=== PATIENT | female | born 1955 | race Caucasian/White ===

== ENCOUNTER → 2016-09-08 | Outpatient (REF) | payer BC ==
[~2016-09-08] MED LIST: CYCL10TA PO; DICY10SO PO; IMOD2TAB16 PO; LORA2CON5 PO; LOVA20TA2 PO; MULT1TAB10 PO; RANI15TA PO; SUDA1TAB3 PO; TRAZ100T4 PO; TYLE650T35 PO; VAGI10TA VA; VITA400C97 PO; VITA500C19 PO; VITATAB PO
[2016-09-08 18:07] LABS: MEAN CORPUSCULAR HEMOGLOBIN 31.9 pg (27.0-33.0); MEAN CORPUSCULAR HGB CONC 33.2 g/dl (32.0-36.5); MEAN CORPUSCULAR VOLUME 96.1 fl (80.0-96.0); RED CELL DISTRIBUTION WIDTH 12.5 % (11.5-14.5); WHITE BLOOD COUNT 6.2 K/mm3 (4.0-10.0)
[2016-09-08 18:23] LABS: ALBUMIN 3.6 GM/DL (3.2-5.2); ALKALINE PHOSPHATASE 59 U/L (45-117); ALT/SGPT 38 U/L (12-78); ANION GAP 6 MEQ/L (8-16); AST/SGOT 33 U/L (15-37); BILIRUBIN,TOTAL 0.3 MG/DL (0.2-1.0); BLOOD UREA NITROGEN 10 MG/DL (7-18); CALCIUM LEVEL 8.7 MG/DL (8.8-10.2); CARBON DIOXIDE LEVEL 30 MEQ/L (21-32); CHLORIDE LEVEL 108 MEQ/L (98-107); CHOLESTEROL LEVEL 220 MG/DL (<200); CREATININE FOR GFR 0.96 MG/DL (0.55-1.02); GLOMERULAR FILTRATION RATE > 60.0 (>45); GLUCOSE, FASTING 83 MG/DL (80-110); POTASSIUM SERUM 4.5 MEQ/L (3.5-5.1); SODIUM LEVEL 144 MEQ/L (136-145); TOTAL PROTEIN 7.2 GM/DL (6.4-8.2); TRIGLYCERIDES LEVEL 107 MG/DL (<150)
== END ==
LOC: M SFHCCLAY 09:55
PROVIDERS: ATTEND Family Medicine
DX: E78.00 Pure hypercholesterolemia, unspecified (principal); G43.009 Migraine without aura, not intractable, without status migrainosus

== ENCOUNTER → 2017-04-20 | Outpatient (CLI) | payer BC ==
[~2017-04-20] MED LIST changes: +TRAZ-136 PO; -TRAZ100T4 PO
--- NOTE | 2017-04-20 14:23 | REP ---
MRI brain without contrast: History: Impairment of balance. . Comparison study: No comparison study. Technique: Axial and sagittal imaging planes are utilized for T1 and T2-weighted scans. Sequences include spin-echo, fast spin echo, FLAIR, and diffusion weighted sequences. MRI findings: No bony calvarial lesion is seen. Craniocervical junction and upper cervical cord are normal in appearance. There is no MR evidence of significant paranasal sinus disease. No intraorbital abnormality is seen. The lateral, third, and fourth ventricles are normal in size and position. Hutchinson-white differentiation pattern is intact above and below the tentorium. There is no evidence of intracranial hemorrhage. No mass, infarction, extra-axial fluid collection or midline shift is seen. No abnormal white matter lesion is seen. Impression: Negative noncontrast brain MRI study. Signed by Maxim Sweeney MD 04/20/2017 02:14 P
== END ==
LOC: M RAD 11:02
PROVIDERS: ATTEND Family Medicine
DX: R26.89 Other abnormalities of gait and mobility (principal)

== ENCOUNTER → 2017-09-25 | Outpatient (REF) | payer BC ==
[2017-09-26 12:37] LABS: ALBUMIN 3.8 GM/DL (3.2-5.2); ALKALINE PHOSPHATASE 65 U/L (45-117); ALT/SGPT 32 U/L (12-78); AST/SGOT 34 U/L (7-37); BILIRUBIN,DIRECT < 0.1 MG/DL (0.0-0.2); BILIRUBIN,TOTAL 0.3 MG/DL (0.2-1.0); TOTAL PROTEIN 7.6 GM/DL (6.4-8.2)
== END ==
LOC: M LABDRAWC 11:41
DX: R94.5 Abnormal results of liver function studies (principal)
CPT/HCPCS: 80076

== ENCOUNTER → 2017-10-30 | Outpatient (REF) | payer BC | LOC: M SFHCCLAY 11:13 | DX: R30.0 Dysuria (principal) | CPT/HCPCS: 87086 ==

== ENCOUNTER 2017-10-31 16:51 | Emergency (ER) | payer BC ==
[2017-10-31] MEDS: NS 1,000 ML IV ×4 (16:00→17:45)
[2017-10-31] MEDS: ONDANSETRON 4MG/2ML VIAL (J2405) IV ×2 (16:01)
[2017-10-31] MEDS: KETOROLAC 30 MG/ML VIAL (J1885) IV ×2 (16:01)
[2017-10-31] MEDS: PERCOCET 5MG/325MG TAB PO ×2 (16:04)
[2017-10-31] MEDS: diphenhydrAMINE INJ 50MG/ML VIAL (J1200) IV ×2 (16:07)
[2017-10-31 16:14] LABS: BASO % 0.1 % (0.0-1.0); EOS % 0.1 % (0.0-3.0); HEMATOCRIT 39.1 % (36.0-47.0); HEMOGLOBIN 13.5 g/dl (12.0-15.5); IMMATURE GRANULOCYTE % 0.5 % (0-3.0); LYMPH # 0.7 10^3/uL (1.5-4.5); LYMPH % 4.9 % (24.0-44.0); MEAN CORPUSCULAR HEMOGLOBIN 31.2 pg (27.0-33.0); MEAN CORPUSCULAR HGB CONC 34.5 g/dl (32.0-36.5); MEAN CORPUSCULAR VOLUME 90.3 fl (80.0-96.0); MONO # 0.3 10^3/uL (0.0-0.8); MONO % 2.1 % (0.0-5.0); NEUTROPHILS % 92.3 % (36.0-66.0); PLATELET COUNT, AUTOMATED 219 10^3/uL (150-450); RED BLOOD COUNT 4.33 10^6/uL (4.00-5.40); RED CELL DISTRIBUTION WIDTH 12.4 % (11.5-14.5); WHITE BLOOD COUNT 14.1 10^3/uL (4.0-10.0)
[2017-10-31 16:22] LABS: KETONE, URINE AUTO RFX NEGATIVE (NEGATIVE); NITRITE, URINE AUTO RFX NEGATIVE (NEGATIVE); RBC, URINE AUTO RFX 1 /HPF (0-3); SPECIFIC GRAVITY UR AUTO RFX 1.008 (1.002-1.035); SQUAM EPITHELIAL CELL UR AURFX 0 /HPF (0-6); WBC, URINE AUTO RFX 2 /HPF (0-3)
[2017-10-31 16:23] LABS: LEUKOCYTE ESTERASE UR AUTO RFX 1+ (NEGATIVE)
[2017-10-31 16:35] LABS: ALBUMIN/GLOBULIN RATIO 0.95 (1.00-1.93); ALKALINE PHOSPHATASE 53 U/L (45-117); ALT/SGPT 35 U/L (12-78); ANION GAP 8 MEQ/L (8-16); AST/SGOT 34 U/L (7-37); BILIRUBIN,TOTAL 0.5 MG/DL (0.2-1.0); BLOOD UREA NITROGEN 11 MG/DL (7-18); C REACTIVE PROTEIN QUANTITATIV 2.84 MG/DL (0.00-0.30); CALCIUM LEVEL 9.1 MG/DL (8.8-10.2); CARBON DIOXIDE LEVEL 28 MEQ/L (21-32); CHLORIDE LEVEL 106 MEQ/L (98-107); CREATININE FOR GFR 1.19 MG/DL (0.55-1.30); GLOMERULAR FILTRATION RATE 48.8 (>45); GLUCOSE, FASTING 80 MG/DL (70-100); LIPASE 112 U/L (73-393); POTASSIUM SERUM 3.6 MEQ/L (3.5-5.1); SODIUM LEVEL 142 MEQ/L (136-145); TOTAL PROTEIN 8.2 GM/DL (6.4-8.2)
[2017-10-31 16:45] LABS: ERYTHROCYTE SEDIMENTATION RATE 39 mm/hr (0-30)
[2017-10-31 16:52] LABS: LACTIC ACID SEPSIS PROTOCOL 2.3 MMOL/L (0.4-2.0)
[2017-10-31] MEDS ORDERED: ISOVUE-370 76% 100ML VIAL (Q9967) As Ordered ×2 (16:54)
[2017-10-31] MEDS: CIPROFLOXACIN 500 MG TAB PO ×2 (18:17)
[2017-10-31] MEDS: LevoFLOXacin 500 MG TABLET PO ×2 (18:49)
[2017-10-31 19:24] LABS: LACTIC ACID SEPSIS PROTOCOL 1.6 MMOL/L (0.4-2.0)
== END 2017-10-31 19:34 | disposition home or self-care (01) ==
LOC: M ED 16:51
DX: N10 Acute pyelonephritis (principal); A08.4 Viral intestinal infection, unspecified; N39.0 Urinary tract infection, site not specified; M19.90 Unspecified osteoarthritis, unspecified site; Z87.19 Personal history of other diseases of the digestive system; Z86.69 Personal history of other diseases of the nervous system and sense organs; Z98.890 Other specified postprocedural states; Z88.5 Allergy status to narcotic agent; Z88.8 Allergy status to other drugs, medicaments and biological substances; Z88.0 Allergy status to penicillin; Z88.2 Allergy status to sulfonamides; Z79.890 Hormone replacement therapy; Z79.899 Other long term (current) drug therapy
CPT/HCPCS: J1200

== ENCOUNTER 2017-11-15 15:32 | Inpatient (IN) | payer BC ==
[~2017-11-15 15:32] MED LIST changes: -CYCL10TA PO; -DICY10SO PO; -IMOD2TAB16 PO; -LORA2CON5 PO; -LOVA20TA2 PO; -MULT1TAB10 PO; +ONDANSETRON 4MG/2ML VIAL (J2405) IV; -RANI15TA PO; -SUDA1TAB3 PO; -TRAZ-136 PO; -TYLE650T35 PO; -VAGI10TA VA; -VITA400C97 PO; -VITA500C19 PO; -VITATAB PO
[2017-11-15 16:03] LABS: BASO % 0.2 % (0.0-1.0); EOS # 0.1 10^3/uL (0.0-0.50); EOS % 0.3 % (0.0-3.0); HEMATOCRIT 36.4 % (36.0-47.0); HEMOGLOBIN 12.7 g/dl (12.0-15.5); IMMATURE GRANULOCYTE % 0.7 % (0-3.0); LYMPH # 0.4 10^3/uL (1.5-4.5); MEAN CORPUSCULAR HEMOGLOBIN 31.4 pg (27.0-33.0); MEAN CORPUSCULAR HGB CONC 34.9 g/dl (32.0-36.5); MEAN CORPUSCULAR VOLUME 89.9 fl (80.0-96.0); MONO # 0.4 10^3/uL (0.0-0.8); MONO % 2.1 % (0.0-5.0); NEUTROPHILS # 18.1 10^3/uL (1.8-7.7); NEUTROPHILS % 94.7 % (36.0-66.0); PLATELET COUNT, AUTOMATED 202 10^3/uL (150-450); RED BLOOD COUNT 4.05 10^6/uL (4.00-5.40); RED CELL DISTRIBUTION WIDTH 12.5 % (11.5-14.5); WHITE BLOOD COUNT 19.1 10^3/uL (4.0-10.0)
[2017-11-15] MEDS ORDERED: ISOVUE-370 76% 100ML VIAL (Q9967) As Ordered (16:07)
[2017-11-15] MEDS: ACETAMINOPHEN TAB 650MG DOSE (2X325MG) PO ×2 (16:30→21:54)
[2017-11-15] MEDS: NS 1,000 ML IV ×3 (16:30→21:54)
[2017-11-15] MEDS: MEROPENEM INJ 1 GM in APPROPRIATE DILUENT 1 EA IV ×2 (16:30→23:11)
[2017-11-15 16:36] LABS: LACTIC ACID SEPSIS PROTOCOL 2.2 MMOL/L (0.4-2.0)
[2017-11-15 16:39] LABS: ALBUMIN 3.7 GM/DL (3.2-5.2); ALBUMIN/GLOBULIN RATIO 1.06 (1.00-1.93); ALKALINE PHOSPHATASE 55 U/L (45-117); ALT/SGPT 32 U/L (12-78); ANION GAP 7 MEQ/L (8-16); AST/SGOT 35 U/L (7-37); BILIRUBIN,TOTAL 0.4 MG/DL (0.2-1.0); BLOOD UREA NITROGEN 12 MG/DL (7-18); CALCIUM LEVEL 8.2 MG/DL (8.8-10.2); CARBON DIOXIDE LEVEL 26 MEQ/L (21-32); CHLORIDE LEVEL 108 MEQ/L (98-107); GLOMERULAR FILTRATION RATE 53.4 (>45); GLUCOSE, FASTING 112 MG/DL (70-100); MAGNESIUM LEVEL 2.1 MG/DL (1.8-2.4); SODIUM LEVEL 141 MEQ/L (136-145); THYROID STIMULATING HORMONE 0.846 uIU/ML (0.358-3.740); TOTAL PROTEIN 7.2 GM/DL (6.4-8.2)
[2017-11-15] MEDS: VANCOMYCIN HCL 1,000 MG, VIAL MATE ADAPTER 1 EACH in D5W/0.2% SODIUM CHLORIDE 250 ML IV (18:11)
[2017-11-15 18:38] LABS: APPEARANCE, URINE CLEAR (CLEAR); BACTERIA, URINE AUTO NEGATIVE (NEGATIVE); BILIRUBIN, URINE AUTO NEGATIVE (NEGATIVE); BLOOD, URINE BLOOD NEGATIVE (NEGATIVE); COLOR, URINE YELLOW (YELLOW); GLUCOSE, URINE (UA) AUTO NEGATIVE (NEGATIVE); KETONE, URINE AUTO NEGATIVE (NEGATIVE); LEUKOCYTE ESTERASE, URINE AUTO 1+ (NEGATIVE); NITRITE, URINE AUTO NEGATIVE (NEGATIVE); PROTEIN, URINE AUTO NEGATIVE (NEGATIVE); RBC, URINE AUTO 1 /HPF (0-3); SPECIFIC GRAVITY URINE AUTO 1.008 (1.002-1.035); SQUAMOUS EPITHELIAL CELL UR AU 0 /HPF (0-6); UROBILINOGEN, URINE AUTO 0.2 mg/dL (0.0-2.0); WBC, URINE AUTO 5 /HPF (0-3)
[2017-11-15 19:57] LABS: BEDSIDE GLUCOSE 199 MG/DL (80-115)
[2017-11-15 20:26] LABS: LACTIC ACID SEPSIS PROTOCOL 2.7 MMOL/L (0.4-2.0)
[2017-11-15] MEDS: SODIUM CHLORIDE 0.9% 1000 ML IV (20:52)
[2017-11-15] MEDS: traZODone 100 MG TAB PO (21:54)
[2017-11-15 22:59] LABS: REASON FOR REVIEW WBC/LEUKEMIA/BLAST; SLIDE REVIEW Report; SOURCE PERIPHERAL SMEAR
[2017-11-15 23:05] LABS: C REACTIVE PROTEIN QUANTITATIV 3.68 MG/DL (0.00-0.30); RHEUMATOID FACTOR QUANT < 10.0 IU/ML (<15.0)
[2017-11-15 23:17] LABS: DIFF SLIDE NUMBER 24
[2017-11-16 00:08] LABS: BEDSIDE GLUCOSE 105 MG/DL (80-115)
[2017-11-16] MEDS: VANCOMYCIN HCL 1,000 MG, VIAL MATE ADAPTER 1 EACH in D5W/0.2% SODIUM CHLORIDE 250 ML IV ×2 (05:09→22:39)
[2017-11-16 05:52] LABS: BEDSIDE GLUCOSE 107 MG/DL (80-115)
[2017-11-16 07:12] LABS: HEMATOCRIT 30.1 % (36.0-47.0); MEAN CORPUSCULAR HEMOGLOBIN 31.1 pg (27.0-33.0); MEAN CORPUSCULAR HGB CONC 34.6 g/dl (32.0-36.5); MEAN CORPUSCULAR VOLUME 90.1 fl (80.0-96.0); PLATELET COUNT, AUTOMATED 182 10^3/uL (150-450); RED BLOOD COUNT 3.34 10^6/uL (4.00-5.40); RED CELL DISTRIBUTION WIDTH 12.9 % (11.5-14.5); WHITE BLOOD COUNT 12.3 10^3/uL (4.0-10.0)
[2017-11-16 07:16] LABS: HEMOGLOBIN 10.4 g/dl (12.0-15.5)
[2017-11-16 07:26] LABS: ANION GAP 6 MEQ/L (8-16); BLOOD UREA NITROGEN 8 MG/DL (7-18); CALCIUM LEVEL 7.4 MG/DL (8.8-10.2); CARBON DIOXIDE LEVEL 24 MEQ/L (21-32); CHLORIDE LEVEL 115 MEQ/L (98-107); GLOMERULAR FILTRATION RATE > 60.0 (>45); GLUCOSE, FASTING 118 MG/DL (70-100); POTASSIUM SERUM 3.5 MEQ/L (3.5-5.1); SODIUM LEVEL 145 MEQ/L (136-145)
[2017-11-16] MEDS ORDERED: PANTOPRAZOLE 40MG TAB (PROTONIX) PO (09:00)
[2017-11-16] MEDS: ENOXAPARIN 40 MG/0.4 ML SYRINGE (J1650) SC (09:05)
[2017-11-16] MEDS: MEROPENEM INJ 1 GM in APPROPRIATE DILUENT 1 EA IV ×2 (09:05→17:26)
[2017-11-16] MEDS: NS 1,000 ML IV ×2 (11:13→20:55)
[2017-11-16] MEDS: IBUPROFEN 400 MG TAB PO ×2 (13:40→21:55)
[2017-11-16] MEDS: FAMOTIDINE 20 MG TAB PO ×2 (13:47→21:54)
[2017-11-16] MEDS ORDERED: ISOVUE-370 76% 100ML VIAL (Q9967) As Ordered (17:52)
[2017-11-16 19:34] LABS: CHLAMYDIA DNA AMPLIFICATION NEGATIVE (NEGATIVE); GC DNA AMPLIFICATION NEGATIVE (NEGATIVE)
[2017-11-16 21:42] LABS: ERYTHROCYTE SEDIMENTATION RATE 44 mm/hr (0-30)
[2017-11-16] MEDS: traZODone 100 MG TAB PO (21:55)
[2017-11-17] MEDS: MEROPENEM INJ 1 GM in APPROPRIATE DILUENT 1 EA IV ×3 (00:32→15:36)
[2017-11-17 02:55] LABS: APPEARANCE, URINE CLEAR (CLEAR); BACTERIA, URINE AUTO NEGATIVE (NEGATIVE); BILIRUBIN, URINE AUTO NEGATIVE (NEGATIVE); BLOOD, URINE BLOOD NEGATIVE (NEGATIVE); COLOR, URINE STRAW (YELLOW); GLUCOSE, URINE (UA) AUTO NEGATIVE (NEGATIVE); KETONE, URINE AUTO NEGATIVE (NEGATIVE); LEUKOCYTE ESTERASE, URINE AUTO TRACE (NEGATIVE); MUCUS, URINE SMALL (NEGATIVE); NITRITE, URINE AUTO NEGATIVE (NEGATIVE); PROTEIN, URINE AUTO NEGATIVE (NEGATIVE); RBC, URINE AUTO 2 /HPF (0-3); SQUAMOUS EPITHELIAL CELL UR AU 0 /HPF (0-6); UROBILINOGEN, URINE AUTO 0.2 mg/dL (0.0-2.0); WBC, URINE AUTO 6 /HPF (0-3)
[2017-11-17 07:28] LABS: ANION GAP 6 MEQ/L (8-16); BLOOD UREA NITROGEN 7 MG/DL (7-18); CALCIUM LEVEL 7.8 MG/DL (8.8-10.2); CARBON DIOXIDE LEVEL 26 MEQ/L (21-32); CHLORIDE LEVEL 116 MEQ/L (98-107); CREATININE FOR GFR 0.74 MG/DL (0.55-1.30); GLOMERULAR FILTRATION RATE > 60.0 (>45); GLUCOSE, FASTING 87 MG/DL (70-100); POTASSIUM SERUM 4.1 MEQ/L (3.5-5.1); SODIUM LEVEL 148 MEQ/L (136-145)
[2017-11-17] MEDS: ENOXAPARIN 40 MG/0.4 ML SYRINGE (J1650) SC (08:31)
[2017-11-17] MEDS: NS 1,000 ML IV ×2 (09:44→21:02)
[2017-11-17 11:05] LABS: HIV 1&2 SCREEN CENTAUR NEGATIVE (NEGATIVE)
[2017-11-17] MEDS: FAMOTIDINE 20 MG TAB PO (13:52)
[2017-11-17] MEDS: IBUPROFEN 400 MG TAB PO (13:52)
[2017-11-17] MEDS: ACETAMINOPHEN TAB 650MG DOSE (2X325MG) PO (15:36)
[2017-11-17 16:20] LABS: ANTINUCLEAR ANTIBODIES DIRECT Negative (Negative)
[2017-11-17] MEDS: VANCOMYCIN HCL 1,000 MG, VIAL MATE ADAPTER 1 EACH in D5W/0.2% SODIUM CHLORIDE 250 ML IV (17:37)
[2017-11-17 18:36] LABS: VANCOMYCIN LEVEL TROUGH 11.3 UG/ML (10.0-20.0)
[2017-11-17 19:11] LABS: HEMATOCRIT 31.1 % (36.0-47.0); HEMOGLOBIN 10.6 g/dl (12.0-15.5); MEAN CORPUSCULAR HEMOGLOBIN 31.4 pg (27.0-33.0); MEAN CORPUSCULAR HGB CONC 34.1 g/dl (32.0-36.5); PLATELET COUNT, AUTOMATED 168 10^3/uL (150-450); RED BLOOD COUNT 3.38 10^6/uL (4.00-5.40); WHITE BLOOD COUNT 6.3 10^3/uL (4.0-10.0)
[2017-11-17 19:36] LABS: ALBUMIN 2.8 GM/DL (3.2-5.2); ALBUMIN/GLOBULIN RATIO 0.88 (1.00-1.93); ALKALINE PHOSPHATASE 52 U/L (45-117); ALT/SGPT 27 U/L (12-78); ANION GAP 7 MEQ/L (8-16); AST/SGOT 22 U/L (7-37); BILIRUBIN,TOTAL 0.2 MG/DL (0.2-1.0); BLOOD UREA NITROGEN 9 MG/DL (7-18); CARBON DIOXIDE LEVEL 26 MEQ/L (21-32); CHLORIDE LEVEL 112 MEQ/L (98-107); CREATININE FOR GFR 0.78 MG/DL (0.55-1.30); GLOMERULAR FILTRATION RATE > 60.0 (>45); GLUCOSE, FASTING 108 MG/DL (70-100); POTASSIUM SERUM 4.2 MEQ/L (3.5-5.1); SODIUM LEVEL 145 MEQ/L (136-145)
[2017-11-17] MEDS: traZODone 100 MG TAB PO (21:02)
[2017-11-18 00:14] LABS: Lyme Disease IgG/IgM Antibodie <0.91 ISR (0.00-0.90); Lyme Disease IgM Ab Quantitati <0.80 index (0.00-0.79)
[2017-11-18] MEDS: MEROPENEM INJ 1 GM in APPROPRIATE DILUENT 1 EA IV ×2 (00:48→08:48)
[2017-11-18] MEDS: VANCOMYCIN HCL 1,000 MG, VIAL MATE ADAPTER 1 EACH in D5W/0.2% SODIUM CHLORIDE 250 ML IV (05:30)
[2017-11-18] MEDS: IBUPROFEN 400 MG TAB PO ×2 (05:49→06:20)
[2017-11-18 06:33] LABS: HEMATOCRIT 33.2 % (36.0-47.0); HEMOGLOBIN 11.3 g/dl (12.0-15.5); MEAN CORPUSCULAR HEMOGLOBIN 31.3 pg (27.0-33.0); PLATELET COUNT, AUTOMATED 206 10^3/uL (150-450); RED BLOOD COUNT 3.61 10^6/uL (4.00-5.40); WHITE BLOOD COUNT 7.1 10^3/uL (4.0-10.0)
[2017-11-18 06:47] LABS: ANION GAP 5 MEQ/L (8-16); BLOOD UREA NITROGEN 7 MG/DL (7-18); CALCIUM LEVEL 8.2 MG/DL (8.8-10.2); CARBON DIOXIDE LEVEL 28 MEQ/L (21-32); CHLORIDE LEVEL 111 MEQ/L (98-107); CREATININE FOR GFR 0.77 MG/DL (0.55-1.30); GLOMERULAR FILTRATION RATE > 60.0 (>45); GLUCOSE, FASTING 88 MG/DL (70-100); POTASSIUM SERUM 3.4 MEQ/L (3.5-5.1); SODIUM LEVEL 144 MEQ/L (136-145)
[2017-11-18] MEDS: NS 1,000 ML IV (08:48)
[2017-11-18] MEDS: ACETAMINOPHEN TAB 650MG DOSE (2X325MG) PO (08:49)
[2017-11-18] MEDS: ENOXAPARIN 40 MG/0.4 ML SYRINGE (J1650) SC (08:50)
[2017-11-18] MEDS: POTASSIUM CHLORIDE 10 MEQ SR TABLET PO (11:30)
[2017-11-19 09:05] LABS: QUANTIFERON GOLD TB Negative (Negative); TB Test (QFT) Antigen 0.07 IU/mL (.); TB Test (QFT) Antigen Minus Ni 0.02 IU/mL (.); TB Test (QFT) Mitogen 7.23 IU/mL (.); TB Test (QFT) Nil 0.05 IU/mL (.)
== END 2017-11-18 11:45 | disposition home or self-care (01) | DRG 722 ==
LOC: M MSPAV 15:32
DX: R50.9 Fever, unspecified (principal); K21.9 Gastro-esophageal reflux disease without esophagitis; M79.7 Fibromyalgia; Z86.14 Personal history of Methicillin resistant Staphylococcus aureus infection; Z88.0 Allergy status to penicillin; Z88.2 Allergy status to sulfonamides; Z88.1 Allergy status to other antibiotic agents; Z88.5 Allergy status to narcotic agent; Z79.899 Other long term (current) drug therapy; Z87.19 Personal history of other diseases of the digestive system

== ENCOUNTER → 2017-11-15 | Outpatient (REF) | payer BC | LOC: M SFHCCLAY 14:50 | DX: R50.9 Fever, unspecified (principal) | CPT/HCPCS: 87086 ==

== ENCOUNTER → 2017-11-27 | Outpatient (REF) | payer BC | LOC: M SFHCCLAY 13:23 | DX: R50.9 Fever, unspecified (principal) | CPT/HCPCS: 86063 ==

== ENCOUNTER → 2017-12-07 | Outpatient (CLI) | payer BC | LOC: M WHC 10:45 | DX: Z12.31 Encounter for screening mammogram for malignant neoplasm of breast (principal); R92.8 Other abnormal and inconclusive findings on diagnostic imaging of breast | CPT/HCPCS: 77067 ==

== ENCOUNTER → 2017-12-07 | Outpatient (REF) | payer BC ==
[2017-12-09 14:10] LABS: HPV HYBRID CAPTURE II Negative (Negative)
== END ==
LOC: M SFHCWAGY 11:36
DX: Z12.4 Encounter for screening for malignant neoplasm of cervix (principal)
CPT/HCPCS: G0123

== ENCOUNTER → 2017-12-13 | Outpatient (CLI) | payer BC | LOC: M RAD 11:51 | DX: R92.8 Other abnormal and inconclusive findings on diagnostic imaging of breast (principal) | CPT/HCPCS: 77065 ==

== ENCOUNTER → 2018-03-15 | Outpatient (REF) | payer BC | LOC: M SFHCCLAY 12:33 | DX: R50.9 Fever, unspecified (principal) ==

== ENCOUNTER → 2018-08-16 | Outpatient (CLI) | payer BC ==
[~2018-08-16] MED LIST changes: +CIPR-249 PO; +CYCL10TA PO; +DICY10SO PO; +IMOD2TAB16 PO; +LEVA1TAB2 PO; +LORA2CON5 PO; +LOVA20TA2 PO; +MULT1TAB10 PO; +NITR100C2; -ONDANSETRON 4MG/2ML VIAL (J2405) IV; +POLY33503; +PROM25TA12 PO; +RANI15TA PO; +SUDA1TAB3 PO; +TOPI25TA10; +TRAZ-163 PO; +TYLE650T35 PO; +VAGI10TA VA; +VITA400C97 PO; +VITA500C19 PO; +VITATAB PO; +ZOFR4TAB14 PO
--- NOTE | 2018-08-17 01:32 | REP ---
Clinical: Trauma. Right foot sprain. Technique: AP, lateral, bilateral oblique views right foot . Findings: The osseous structures and joint spaces are intact and normal. Moderate heal spur noted. There is no evidence for acute fracture or dislocation. Surrounding soft tissues are unremarkable. No subcutaneous emphysema or radiodense foreign body. Impression: Generalized age-related changes. No acute fracture or dislocation.
--- NOTE | 2018-08-17 01:32 | REP ---
Clinical: Right ankle sprain . Technique: AP, lateral, bilateral oblique views. Findings: No acute fracture or dislocation. Skeletal structures and joint spaces are intact and normal. Lateral view demonstrates moderate calcaneal heal spur. Ankle mortise appears stable. No subcutaneous emphysema or radiodense foreign body. Impression: Age-related changes. No acute fracture or dislocation. Moderate heal spur.
== END ==
LOC: M CLY 14:31
PROVIDERS: ATTEND Family Medicine
DX: S93.491A Sprain of other ligament of right ankle, initial encounter (principal); M77.31 Calcaneal spur, right foot; X58.XXXA Exposure to other specified factors, initial encounter; Y92.9 Unspecified place or not applicable

== ENCOUNTER 2018-10-26 09:06 | Day surgery (SDC) | payer BC ==
[~2018-10-26] VITALS: Ht 162.6 cm; Wt 59.4 kg
[2018-10-26] MEDS ORDERED: NS 1,000 ML IV ONE (10:30)
[2018-10-26] MEDS ORDERED: PROPOFOL 200 MG/20 ML VIAL As Ordered ONE (11:21)
--- NOTE | 2018-10-26 11:28 | ROOR ---
Patient Name: Maxine Bell Procedure Date: 10/26/2018 10:58 AM Date of : 1955 Age: 63 Room: [facility] Gender: Female Note Status: Finalized Procedure: Colonoscopy Indications: High risk colon cancer surveillance: Ulcerative pancolitis, Incidental - Microscopic colitis, Incidental - Change in bowel habits Providers: Lucas OWEN MD Referring MD: Parker Morris MD Requesting Provider: Medicines: Monitored Anesthesia Care Complications: No immediate complications. Procedure: Pre-Anesthesia Assessment: - The heart rate, respiratory rate, oxygen saturations, blood pressure, adequacy of pulmonary ventilation, and response to care were monitored throughout the procedure. The Colonoscope was introduced through the anus and advanced to 10 cm into the ileum. The colonoscopy was performed without difficulty. The patient tolerated the procedure well. The quality of the bowel preparation was good. Findings: The perianal and digital rectal examinations were normal. The terminal ileum appeared normal. A few medium-mouthed diverticula were found in the sigmoid colon. The exam was otherwise normal throughout the examined colon. Several biopsies were obtained with cold forceps for ulcerative colitis surveillance and evaluation of collagenous colitis in the left colon, as well as several biopsies in the transverse colon, several biopsies in the descending colon and several biopsies in the sigmoid colon. Several biopsies were obtained in the rectum with cold forceps for histology. Impression: - The examined portion of the ileum was normal. - Mild diverticulosis in the sigmoid colon. - The colon was otherwise normal. - Biopsies performed in the left colon, in the transverse colon, in the descending colon and in the sigmoid colon and rectum. Recommendation: - Telephone endoscopist for pathology results in 2 weeks. Lucas Owen MD Lucas OWEN MD 10/26/2018 11:27:47 AM Electronically signed by Lucas OWEN MD Number of Addenda: 0 Note Initiated On: 10/26/2018 10:58 AM Estimated Blood Loss: Estimated blood loss: none.
[2018-10-26 12:05] VITALS: BP 124/75
== END 2018-10-26 12:05 | disposition home or self-care (01) ==
LOC: M OPP 09:06
PROVIDERS: ATTEND Internal Medicine Gastroenterology
DX: K51.00 Ulcerative (chronic) pancolitis without complications (principal); K57.30 Diverticulosis of large intestine without perforation or abscess without bleeding; K52.831 Collagenous colitis; Z79.899 Other long term (current) drug therapy; Z88.0 Allergy status to penicillin; Z88.2 Allergy status to sulfonamides; Z88.5 Allergy status to narcotic agent; Z88.8 Allergy status to other drugs, medicaments and biological substances

== ENCOUNTER → 2019-03-25 | Outpatient (REF) | payer BC ==
[2019-03-25 16:56] LABS: HEMATOCRIT 41.2 % (36.0-47.0); MEAN CORPUSCULAR HEMOGLOBIN 31.6 pg (27.0-33.0); PLATELET COUNT, AUTOMATED 246 10^3/uL (150-450); RED BLOOD COUNT 4.43 10^6/uL (4.00-5.40); WHITE BLOOD COUNT 6.9 10^3/uL (4.0-10.0)
[2019-03-25 17:39] LABS: ALBUMIN 3.9 GM/DL (3.2-5.2); BILIRUBIN,TOTAL 0.3 MG/DL (0.2-1.0); CALCIUM LEVEL 9.5 MG/DL (8.8-10.2); CHOLESTEROL RISK RATIO 4.236 (<5); CREATININE FOR GFR 1.13 MG/DL (0.55-1.30); GLOMERULAR FILTRATION RATE 51.6 (>45); POTASSIUM SERUM 4.9 MEQ/L (3.5-5.1); TOTAL 25(OH) VITAMIN D 41.8 NG/ML (30.0-100.0); TOTAL PROTEIN 7.6 GM/DL (6.4-8.2)
== END ==
LOC: M SFHCCLAY 09:53
PROVIDERS: ATTEND Nurse Practitioner Family
DX: K76.0 Fatty (change of) liver, not elsewhere classified (principal); E78.5 Hyperlipidemia, unspecified; Z13.21 Encounter for screening for nutritional disorder

== ENCOUNTER → 2019-09-03 | Outpatient (REF) | payer MEDICARE ==
[~2019-09-03] MED LIST changes: +CYCL-707 PO; -CYCL10TA PO; -TRAZ-163 PO; +TRAZ-257 PO
== END ==
LOC: M SFHCCLAY 16:57
PROVIDERS: ATTEND Family Medicine
DX: N30.00 Acute cystitis without hematuria (principal)

== ENCOUNTER → 2019-10-08 | Outpatient (REF) | payer MEDICARE ==
[2019-10-08 17:45] LABS: ALBUMIN 3.8 GM/DL (3.2-5.2); BILIRUBIN,TOTAL 0.3 MG/DL (0.2-1.0); CHOLESTEROL RISK RATIO 4.584 (<5); CREATININE FOR GFR 1.11 MG/DL (0.55-1.30); GLOMERULAR FILTRATION RATE 52.5 (>45); POTASSIUM SERUM 5.2 MEQ/L (3.5-5.1); THYROID STIMULATING HORMONE 2.67 uIU/ML (0.358-3.740); TOTAL PROTEIN 7.2 GM/DL (6.4-8.2)
== END ==
LOC: M SFHCCLAY 09:26
PROVIDERS: ATTEND Family Medicine
DX: E78.2 Mixed hyperlipidemia (principal)

== ENCOUNTER → 2019-10-14 | Outpatient (REF) | payer MEDICARE | LOC: M SFHCCLAY 11:51 | PROVIDERS: ATTEND Family Medicine | DX: R30.0 Dysuria (principal) ==

== ENCOUNTER → 2019-11-12 | Outpatient (CLI) | payer MEDICARE ==
[~2019-11-12] MED LIST changes: +ACET650T61 PO; -TYLE650T35 PO
--- NOTE | 2019-11-12 13:48 | REP ---
REASON FOR EXAM: Pelvic pain. Transvesical and transvaginal imaging was obtained. The uterus measures 4.2 x 2.8 x 3.7 cm. The parenchymal echo pattern is within normal limits. The endometrial complex measures 2 mm in thickness. Neither ovary could be visualized transvesically or transvaginally. Urinary bladder measures 8 x 5 x 9 cm. There is no free fluid in the pelvis. IMPRESSION: Limited exam, as described above, showing no abnormality. Since neither ovary could be visualized transvesically or transvaginally, consider followup with pelvic MRI.
== END ==
LOC: M WHC 08:51
PROVIDERS: ATTEND Nurse Practitioner Family
DX: R10.2 Pelvic and perineal pain (principal)

== ENCOUNTER → 2019-11-13 | Outpatient (CLI) | payer BC ==
--- NOTE | 2019-11-13 14:42 | REPMRS ---
Patient History The patient states she had a clinical breast exam in November 2019. No known family history of cancer. Benign stereotactic core biopsy of the right breast. Benign excisional biopsy of the left breast. Taking unspecified hormones for 3 years. 3D TOMOSYNTHESIS WAS PERFORMED. The Estelita Goss lifetime risk for breast cancer is 5.8%. VOLPARA DENSITY B. Digital Woman Screen Mammo: November 13, 2019 - Exam #: [id number] Bilateral CC and MLO view(s) were taken. Technologist: Rama King, Technologist Prior study comparison: December 13, 2017, right breast digital mammo diagnostic unilateral, performed at [facility]. December 07, 2017, bilateral digital woman screen mammo performed at [facility]. FINDINGS: The breast tissue is heterogeneously dense. This may lower the sensitivity of mammography. There has been no change in the appearance of the mammogram from the prior studies. There is a moderate amount of residual fibroglandular tissue which is fairly symmetric. There is no interval development of dominant mass, areas of architectural distortion, or clustered microcalcification typical of malignancy. Assessment: BI-RADS/ACR category 1 mammogram. Negative Mammogram. Recommendation Routine screening mammogram in 1 year (for women over age 40). This mammogram was interpreted with the aid of an FDA-approved computer-aided dectection system. Electronically Signed By: Will Hutchinson MD 11/13/19 3620
== END ==
LOC: M WHC 12:41
PROVIDERS: ATTEND Nurse Practitioner Family
DX: Z12.31 Encounter for screening mammogram for malignant neoplasm of breast (principal); Z86.018 Personal history of other benign neoplasm

== ENCOUNTER → 2019-11-13 | Outpatient (REF) | payer MEDICARE | LOC: M SFHCWAGY 15:07 | PROVIDERS: ATTEND Nurse Practitioner Family | DX: Z12.4 Encounter for screening for malignant neoplasm of cervix (principal) ==

== ENCOUNTER → 2020-03-27 | Outpatient (REF) | payer MEDICARE ==
[2020-03-27 16:55] LABS: ALBUMIN 3.9 GM/DL (3.2-5.2); BILIRUBIN,TOTAL 0.4 MG/DL (0.2-1.0); CALCIUM LEVEL 9.3 MG/DL (8.8-10.2); GLOMERULAR FILTRATION RATE 59.2 (>45); POTASSIUM SERUM 4.9 MEQ/L (3.5-5.1); THYROID STIMULATING HORMONE 2.34 uIU/ML (0.358-3.740); TOTAL PROTEIN 7.7 GM/DL (6.4-8.2)
[2020-03-31 00:07] LABS: ANA (HEP2) Negative (.); CYCLIC CITRULLINATED PEPTIDE 6 units (0-19); Lyme Disease IgG/IgM Antibodie <0.91 ISR (0.00-0.90); Lyme Disease IgM Ab Quantitati <0.80 index (0.00-0.79)
== END ==
LOC: M SFHCCLAY 10:30
PROVIDERS: ATTEND Family Medicine
DX: L27.1 Localized skin eruption due to drugs and medicaments taken internally (principal); K21.9 Gastro-esophageal reflux disease without esophagitis; L65.9 Nonscarring hair loss, unspecified

== ENCOUNTER → 2020-04-27 | Outpatient (REF) | payer MEDICARE ==
[2020-04-27 17:13] LABS: ALBUMIN 4.1 GM/DL (3.2-5.2); BILIRUBIN,TOTAL 0.2 MG/DL (0.2-1.0); CALCIUM LEVEL 9.6 MG/DL (8.8-10.2); CREATININE FOR GFR 1.04 MG/DL (0.55-1.30); GLOMERULAR FILTRATION RATE 56.6 (>45); POTASSIUM SERUM 4.7 MEQ/L (3.5-5.1); TOTAL PROTEIN 7.5 GM/DL (6.4-8.2)
== END ==
LOC: M SFHCCLAY 13:50
PROVIDERS: ATTEND Family Medicine
DX: K21.9 Gastro-esophageal reflux disease without esophagitis (principal); Z79.899 Other long term (current) drug therapy

== ENCOUNTER → 2020-08-17 | Outpatient (REF) | payer MEDICARE ==
[2020-08-17 16:39] LABS: BASO # 0.1 10^3/uL (0.0-0.2); BASO % 0.9 % (0.0-1.0); EOS # 0.2 10^3/uL (0.0-0.5); EOS % 2.7 % (0.0-3.0); HEMATOCRIT 40.1 % (36.0-47.0); HEMOGLOBIN 13.5 g/dl (12.0-15.5); LYMPH # 2.7 10^3/uL (1.5-5.0); LYMPH % 36.4 % (24.0-44.0); MEAN CORPUSCULAR HEMOGLOBIN 31.4 pg (27.0-33.0); MEAN CORPUSCULAR HGB CONC 33.7 g/dl (32.0-36.5); MEAN CORPUSCULAR VOLUME 93.3 fl (80.0-96.0); MONO # 0.5 10^3/uL (0.0-0.8); MONO % 6.9 % (2.0-8.0); NEUTROPHILS # 3.9 10^3/uL (1.5-8.5); NEUTROPHILS % 52.8 % (36.0-66.0); PLATELET COUNT, AUTOMATED 253 10^3/uL (150-450); WHITE BLOOD COUNT 7.4 10^3/uL (4.0-10.0)
[2020-08-17 17:21] LABS: ALBUMIN 4.2 GM/DL (3.2-5.2); ALT/SGPT 34 U/L (12-78); AMYLASE 132 U/L (25-115); BILIRUBIN,TOTAL 0.4 MG/DL (0.2-1.0); BLOOD UREA NITROGEN 10 MG/DL (7-18); CALCIUM LEVEL 9.7 MG/DL (8.8-10.2); CARBON DIOXIDE LEVEL 30 MEQ/L (21-32); CHLORIDE LEVEL 105 MEQ/L (98-107); CREATININE FOR GFR 0.95 MG/DL (0.55-1.30); GLOMERULAR FILTRATION RATE > 60.0 (>45); GLUCOSE, FASTING 94 MG/DL (70-100); LIPASE 195 U/L (73-393); POTASSIUM SERUM 4.3 MEQ/L (3.5-5.1); SODIUM LEVEL 139 MEQ/L (136-145); TOTAL PROTEIN 7.5 GM/DL (6.4-8.2)
== END ==
LOC: M LABDRAWC 15:43
PROVIDERS: ATTEND Physician Assistant Medical
DX: R10.10 Upper abdominal pain, unspecified (principal)

== ENCOUNTER → 2020-08-25 | Outpatient (CLI) | payer MEDICARE ==
--- NOTE | 2020-08-25 10:31 | REP ---
INDICATION: R07.89, ATYPICAL CHEST PAIN COMPARISON: 11/15/2017 TECHNIQUE: PA and lateral. FINDINGS: The mediastinum and cardiac silhouette are normal. The lung nance are clear and without acute consolidation, effusion, or pneumothorax. The skeletal structures are intact and normal. IMPRESSION: No acute cardiopulmonary process. <Electronically signed by Doe Romero > 08/25/20 1028
== END ==
LOC: M CLY 10:05
PROVIDERS: ATTEND Family Medicine
DX: R07.89 Other chest pain (principal)

== ENCOUNTER → 2020-08-26 | Outpatient (CLI) | payer MEDICARE ==
--- NOTE | 2020-08-26 08:17 | REP ---
INDICATION: UPPER ABD PAIN, HEARTBURN COMPARISON: None. TECHNIQUE: Real time tomlin scale ultrasound examination using curved array transducer. FINDINGS: Liver is hyperechoic consistent with fatty infiltration. No focal hepatic lesion identified. No hepatomegaly. Pancreas is limited in evaluation due to interposed bowel gas. The gallbladder is surgically absent. No biliary ductal dilatation is appreciated and the common bile duct measures 3.4 mm diameter. Right kidney is normal in reniform shape without hydronephrosis and measures 9.6 x 3.9 x 3.7 cm. No ascites in the visualized right upper quadrant. IMPRESSION: Hepatosteatosis. <Electronically signed by Doe Romero > 08/26/20 0820
== END ==
LOC: M RAD 07:28
PROVIDERS: ATTEND Physician Assistant Medical
DX: K76.0 Fatty (change of) liver, not elsewhere classified (principal); R10.10 Upper abdominal pain, unspecified; R12 Heartburn

== ENCOUNTER → 2020-09-30 | Outpatient (REF) | payer MEDICARE | LOC: M LAB REF 15:54 | PROVIDERS: ATTEND Physician Assistant Medical | DX: R19.7 Diarrhea, unspecified (principal) ==

== ENCOUNTER → 2020-10-04 | Outpatient (CLI) | payer MEDICARE ==
[~2020-10-04] MED LIST changes: +APAP325T4 PO; +CVS1CAP2 PO; +FAMO20TA PO; +IBUP200C29 PO; +VITMTA PO
== END ==
LOC: M LABSMTC 09:55
PROVIDERS: ATTEND Anesthesiology
DX: Z01.818 Encounter for other preprocedural examination (principal); Z11.52 Encounter for screening for COVID-19

== ENCOUNTER 2020-10-09 11:07 | Day surgery (SDC) | payer MEDICARE ==
[~2020-10-09] VITALS: Ht 160 cm; Wt 61.7 kg
[~2020-10-09 11:07] MED LIST changes: +LIDOCAINE 2% 100MG/5ML SDV (FOR ANES.) As Ordered ONE; +NS 1,000 ML IV ONE; +propofoL 200 MG/20 ML VIAL As Ordered ONE
[2020-10-09] MEDS ORDERED: fentaNYL 100 MCG/2 ML INJECTION (J3010) As Ordered ONE (11:18)
--- NOTE | 2020-10-09 13:58 | ROOR ---
Patient Name: Maxine Bell Procedure Date: 10/09/2020 1:35 PM Date of : 1955 Age: 65 Room: [facility] Gender: Female Note Status: Finalized Procedure: Upper GI endoscopy Indications: Epigastric abdominal pain, Heartburn Providers: Lucas Owen MD Referring MD: Parker Morris MD Requesting Provider: Medicines: Monitored Anesthesia Care Complications: No immediate complications. Procedure: Pre-Anesthesia Assessment: - The heart rate, respiratory rate, oxygen saturations, blood pressure, adequacy of pulmonary ventilation, and response to care were monitored throughout the procedure. The Endoscope was introduced through the mouth, and advanced to the second part of duodenum. The upper GI endoscopy was accomplished without difficulty. The patient tolerated the procedure well. Findings: The esophagus was normal. The stomach was normal. The examined duodenum was normal. Impression: - Normal esophagus. - Normal stomach. - Normal examined duodenum. - No specimens collected. Recommendation: - Observe patient's clinical course. - Continue present medications. Procedure Code(s): --- Professional --- 77426, Esophagogastroduodenoscopy, flexible, transoral; diagnostic, including collection of specimen(s) by brushing or washing, when performed (separate procedure) Diagnosis Code(s): --- Professional --- R12, Heartburn R10.13, Epigastric pain CPT copyright 2019 [employer] [place] [employer]. All rights reserved. The codes documented in this report are preliminary and upon diamond grinder review may be revised to meet current compliance requirements. Lucas Owen MD Lucas Owen MD 10/09/2020 1:57:53 PM Electronically signed by Lucas Owen MD Number of Addenda: 0 Note Initiated On: 10/09/2020 1:35 PM Estimated Blood Loss: Estimated blood loss: none.
[2020-10-09 14:15] VITALS: BP 130/64
== END 2020-10-09 14:24 | disposition home or self-care (01) ==
LOC: M OPP 11:07
PROVIDERS: ATTEND Internal Medicine Gastroenterology
DX: R10.13 Epigastric pain (principal); K51.90 Ulcerative colitis, unspecified, without complications; K57.92 Diverticulitis of intestine, part unspecified, without perforation or abscess without bleeding; M19.90 Unspecified osteoarthritis, unspecified site; L30.9 Dermatitis, unspecified; M79.7 Fibromyalgia; F41.9 Anxiety disorder, unspecified; F32.9 Major depressive disorder, single episode, unspecified; G43.909 Migraine, unspecified, not intractable, without status migrainosus; Z88.0 Allergy status to penicillin; Z88.2 Allergy status to sulfonamides; Z88.5 Allergy status to narcotic agent; Z88.8 Allergy status to other drugs, medicaments and biological substances; Z79.899 Other long term (current) drug therapy; Z81.8 Family history of other mental and behavioral disorders
CPT/HCPCS: 43235; J3010

== ENCOUNTER → 2020-12-24 | Outpatient (REF) | payer MEDICARE ==
[~2020-12-24] MED LIST changes: -LIDOCAINE 2% 100MG/5ML SDV (FOR ANES.) As Ordered ONE; -NS 1,000 ML IV ONE; -propofoL 200 MG/20 ML VIAL As Ordered ONE
[2020-12-24 17:08] LABS: CREATININE FOR GFR 1.03 MG/DL (0.55-1.30); GLOMERULAR FILTRATION RATE 57.1 (>45)
== END ==
LOC: M LABDRAWC 15:53
PROVIDERS: ATTEND Physician Assistant Medical
DX: R14.0 Abdominal distension (gaseous) (principal); R19.8 Other specified symptoms and signs involving the digestive system and abdomen

== ENCOUNTER → 2020-12-28 | Outpatient (CLI) | payer MEDICARE ==
[~2020-12-28] MED LIST changes: +GASTROGRAFIN SOLUTION 30ML (Q9963) ONE; +ISOVUE-370 76% 100ML VIAL ONE
--- NOTE | 2020-12-29 07:56 | REP ---
INDICATION: IRREGULAR BOWEL HABIT,ABD PAIN,DISTENTION/BLOAT. COMPARISON: 11/15/2017 TECHNIQUE: Axial pre and post contrast-enhanced images from the lung bases to the pubic symphysis using oral and 100 cc Isovue 370 intravenous contrast material. Delayed images of the abdomen obtained along with coronal and sagittal reformations. This CT examination was performed using the following dose reduction techniques: Automated exposure control, adjustment of mA and/or kv according to the patient's size, and the use of iterative reconstruction technique. FINDINGS: Liver, spleen, pancreas, bilateral adrenal glands and kidneys are normal. The enteric system including stomach, small, and large bowel appears normal. No evidence for obstruction or acute inflammatory process. Normal terminal ileum and appendix are identified in the right lower quadrant. Scattered sigmoid diverticula noted without acute diverticulitis. Pelvis demonstrates normal bladder and age-appropriate uterus/adnexa. No ascites. No free air. No intraperitoneal or retroperitoneal adenopathy. Abdominal aorta and vasculature appear normal. Musculoskeletal structures are intact and without acute osseous abnormality. IMPRESSION: No acute abdominopelvic pathology appreciated. <Electronically signed by Doe Romero > 12/29/20 3617
== END ==
LOC: M PLAIMG 13:09
PROVIDERS: ATTEND Physician Assistant Medical
DX: R10.11 Right upper quadrant pain (principal); R19.8 Other specified symptoms and signs involving the digestive system and abdomen; R14.0 Abdominal distension (gaseous)
CPT/HCPCS: 74178; Q9963; Q9967

== ENCOUNTER → 2021-04-08 | Outpatient (CLI) | payer MEDICARE ==
[~2021-04-08] MED LIST changes: -GASTROGRAFIN SOLUTION 30ML (Q9963) ONE; -ISOVUE-370 76% 100ML VIAL ONE
== END ==
LOC: M CLY 11:12
PROVIDERS: ATTEND Family Medicine
DX: M51.37 Other intervertebral disc degeneration, lumbosacral region (principal); M16.11 Unilateral primary osteoarthritis, right hip; M25.551 Pain in right hip

== ENCOUNTER → 2021-09-27 | Outpatient (CLI) | payer MEDICARE | LOC: M SOG 11:09 | PROVIDERS: ATTEND Physician Assistant | DX: M25.542 Pain in joints of left hand (principal); M79.641 Pain in right hand ==

== ENCOUNTER → 2021-10-07 | Outpatient (REF) | payer MEDICARE ==
[2021-10-07 16:40] LABS: ALBUMIN 3.9 GM/DL (3.2-5.2); ALT/SGPT 40 U/L (12-78); BILIRUBIN,TOTAL 0.2 MG/DL (0.2-1.0); BLOOD UREA NITROGEN 12 MG/DL (7-18); CALCIUM LEVEL 9.4 MG/DL (8.8-10.2); CARBON DIOXIDE LEVEL 31 MEQ/L (21-32); CHLORIDE LEVEL 108 MEQ/L (98-107); CREATININE FOR GFR 1.02 MG/DL (0.55-1.30); GLOMERULAR FILTRATION RATE 57.5 (>45); GLUCOSE, FASTING 87 MG/DL (70-100); POTASSIUM SERUM 4.6 MEQ/L (3.5-5.1); RHEUMATOID FACTOR QUANT < 10.0 IU/ML (<15.0); SODIUM LEVEL 143 MEQ/L (136-145); TOTAL PROTEIN 7.4 GM/DL (6.4-8.2)
[2021-10-07 16:51] LABS: BASO # 0.1 10^3/uL (0.0-0.2); BASO % 1.1 % (0.0-1.0); EOS # 0.4 10^3/uL (0.0-0.5); EOS % 5.4 % (0.0-3.0); HEMATOCRIT 41.6 % (36.0-47.0); LYMPH # 2.4 10^3/uL (1.5-5.0); LYMPH % 33.9 % (24.0-44.0); MEAN CORPUSCULAR HEMOGLOBIN 31.8 pg (27.0-33.0); MEAN CORPUSCULAR HGB CONC 33.7 g/dl (32.0-36.5); MEAN CORPUSCULAR VOLUME 94.5 fl (80.0-96.0); MONO # 0.4 10^3/uL (0.0-0.8); MONO % 5.7 % (2.0-8.0); NEUTROPHILS # 3.8 10^3/uL (1.5-8.5); NEUTROPHILS % 53.6 % (36.0-66.0); PLATELET COUNT, AUTOMATED 249 10^3/uL (150-450)
[2021-10-07 17:31] LABS: ERYTHROCYTE SEDIMENTATION RATE 12 mm/hr (0-30)
== END ==
LOC: M LABDRAWC 15:31
PROVIDERS: ATTEND Physician Assistant
DX: Z79.899 Other long term (current) drug therapy (principal); Z82.69 Family history of other diseases of the musculoskeletal system and connective tissue

== ENCOUNTER → 2021-10-07 | Outpatient (REF) | payer MEDICARE ==
[2021-10-07 16:59] LABS: CHOLESTEROL RISK RATIO 4.326 (<5); THYROID STIMULATING HORMONE 2.15 uIU/ML (0.358-3.740)
== END ==
LOC: M SFHCCLAY 11:42
PROVIDERS: ATTEND Family Medicine
DX: E78.2 Mixed hyperlipidemia (principal)

== ENCOUNTER → 2021-12-23 | Outpatient (REF) | payer MEDICARE ==
[2021-12-23 15:40] LABS: APPEARANCE, URINE MANUAL CLEAR (CLEAR); COLOR, URINE MANUAL YELLOW (YELLOW)
[2021-12-23 15:41] LABS: BILIRUBIN, URINE MANUAL NEGATIVE (NEGATIVE); BLOOD URINE MANUAL NEGATIVE (NEGATIVE); GLUCOSE, URINE (UA) MANUAL NEGATIVE (NEGATIVE); KETONE, URINE MANUAL NEGATIVE (NEGATIVE); LEUKOCYTE ESTERASE, URINE MAN TRACE (NEGATIVE); NITRITE, URINE MANUAL NEGATIVE (NEGATIVE); PROTEIN, URINE MANUAL NEGATIVE (NEGATIVE); UROBILINOGEN, URINE MANUAL NORMAL (NORMAL)
[2021-12-23 15:49] LABS: BACTERIA, URINE NONE SEEN; HYALINE CAST, URINE NONE SEEN /lpf (0-1); RBC, URINE 0-1 /hpf (0-3); SQUAMOUS EPITHELIAL CELL URINE SMALL AMOUNT /hpf (SMALL AMT)
== END ==
LOC: M PLALAB 12:09
PROVIDERS: ATTEND Nurse Practitioner Family
DX: R10.2 Pelvic and perineal pain (principal); B37.3 Candidiasis of vulva and vagina

== ENCOUNTER → 2022-02-14 | Outpatient (REF) | payer MEDICARE | LOC: M SFHCWAGY 15:24 | PROVIDERS: ATTEND Nurse Practitioner Family | DX: Z01.419 Encounter for gynecological examination (general) (routine) without abnormal findings (principal); Z77.9 Other contact with and (suspected) exposures hazardous to health; Z12.4 Encounter for screening for malignant neoplasm of cervix | CPT/HCPCS: 87624; G0123 ==

== ENCOUNTER → 2022-02-14 | Outpatient (CLI) | payer MEDICARE | LOC: M WHC 11:16 | PROVIDERS: ATTEND Nurse Practitioner Family | DX: Z12.31 Encounter for screening mammogram for malignant neoplasm of breast (principal) ==

== ENCOUNTER → 2022-02-22 | Outpatient (REF) | payer MEDICARE ==
[2022-02-22 17:49] LABS: C REACTIVE PROTEIN QUANTITATIV < 0.30 MG/DL (0.00-0.30); IRON (FE) 101 UG/DL (50-170); MAGNESIUM LEVEL 2.5 MG/DL (1.8-2.4)
[2022-02-22 19:13] LABS: TOTAL 25(OH) VITAMIN D 55.6 NG/ML (30.0-100.0)
[2022-02-22 19:14] LABS: VITAMIN B12 LEVEL 506 PG/ML (247-911)
== END ==
LOC: M SFHCRHEU 15:09
PROVIDERS: ATTEND Internal Medicine
DX: M79.10 Myalgia, unspecified site (principal); M25.40 Effusion, unspecified joint; M54.9 Dorsalgia, unspecified; D50.9 Iron deficiency anemia, unspecified

== ENCOUNTER → 2022-03-15 | Outpatient (CLI) | payer MEDICARE | LOC: M CLY 11:34 | PROVIDERS: ATTEND Internal Medicine | DX: M25.40 Effusion, unspecified joint (principal); M54.9 Dorsalgia, unspecified ==

== ENCOUNTER → 2022-03-15 | Outpatient (REF) | payer MEDICARE ==
[2022-03-15 18:03] LABS: BASO # 0.1 10^3/uL (0.0-0.2); EOS # 0.3 10^3/uL (0.0-0.5); EOS % 4.8 % (0.0-3.0); HEMATOCRIT 40.4 % (36.0-47.0); HEMOGLOBIN 13.4 g/dl (12.0-15.5); LYMPH % 32.5 % (24.0-44.0); MEAN CORPUSCULAR HEMOGLOBIN 31.8 pg (27.0-33.0); MEAN CORPUSCULAR HGB CONC 33.2 g/dl (32.0-36.5); MONO # 0.3 10^3/uL (0.0-0.8); MONO % 5.1 % (2.0-8.0); NEUTROPHILS # 3.5 10^3/uL (1.5-8.5); NEUTROPHILS % 56.1 % (36.0-66.0); PLATELET COUNT, AUTOMATED 234 10^3/uL (150-450); RED BLOOD COUNT 4.21 10^6/uL (4.00-5.40); WHITE BLOOD COUNT 6.3 10^3/uL (4.0-10.0)
[2022-03-15 18:42] LABS: TOTAL PROTEIN,RANDOM URINE 10.6 MG/DL (0.0-12.0)
[2022-03-15 18:51] LABS: APPEARANCE, URINE MANUAL CLEAR (CLEAR); COLOR, URINE MANUAL YELLOW (YELLOW); PROTEIN, URINE MANUAL NEGATIVE (NEGATIVE); SPECIFIC GRAVITY,URINE MANUAL 1.015 (1.002-1.035)
[2022-03-15 18:52] LABS: BILIRUBIN, URINE MANUAL 1+ (NEGATIVE); BLOOD URINE MANUAL NEGATIVE (NEGATIVE); GLUCOSE, URINE (UA) MANUAL NEGATIVE (NEGATIVE); KETONE, URINE MANUAL NEGATIVE (NEGATIVE); LEUKOCYTE ESTERASE, URINE MAN POSITIVE (NEGATIVE); NITRITE, URINE MANUAL NEGATIVE (NEGATIVE); UROBILINOGEN, URINE MANUAL 1 MG mg/dl (NORMAL)
[2022-03-15 19:06] LABS: COMPLEMENT C3 140 MG/DL (90-180); COMPLEMENT C4 40 MG/DL (10-40)
[2022-03-15 19:10] LABS: BACTERIA, URINE NONE SEEN; HYALINE CAST, URINE NONE SEEN /lpf (0-1); RBC, URINE 0-1 /hpf (0-3); SQUAMOUS EPITHELIAL CELL URINE SMALL AMOUNT /hpf (SMALL AMT); WBC, URINE 0-1 /hpf (0-3)
== END ==
LOC: M SFHCRHEU 11:33
PROVIDERS: ATTEND Internal Medicine
DX: R76.8 Other specified abnormal immunological findings in serum (principal)

== ENCOUNTER → 2022-04-05 | Outpatient (REF) | payer MEDICARE ==
[~2022-04-05] MED LIST changes: +CIPR500T39 PO; +METR-265 PO
[2022-04-05 19:00] LABS: BASO # 0.1 10^3/uL (0.0-0.2); BASO % 0.9 % (0.0-1.0); EOS # 0.2 10^3/uL (0.0-0.5); EOS % 2.8 % (0.0-3.0); HEMATOCRIT 40.8 % (36.0-47.0); HEMOGLOBIN 13.6 g/dl (12.0-15.5); LYMPH # 2.3 10^3/uL (1.5-5.0); LYMPH % 30.3 % (24.0-44.0); MEAN CORPUSCULAR HGB CONC 33.3 g/dl (32.0-36.5); MONO # 0.5 10^3/uL (0.0-0.8); MONO % 6.9 % (2.0-8.0); NEUTROPHILS # 4.4 10^3/uL (1.5-8.5); NEUTROPHILS % 58.7 % (36.0-66.0); PLATELET COUNT, AUTOMATED 252 10^3/uL (150-450); RED BLOOD COUNT 4.25 10^6/uL (4.00-5.40); WHITE BLOOD COUNT 7.6 10^3/uL (4.0-10.0)
[2022-04-05 19:24] LABS: CARBON DIOXIDE LEVEL 28 MMOL/L (20-31); CHLORIDE LEVEL 103 MMOL/L (98-107); POTASSIUM SERUM 4.5 MMOL/L (3.5-5.1); SODIUM LEVEL 139 MMOL/L (136-145)
[2022-04-05 19:29] LABS: CALCIUM LEVEL 9.1 MG/DL (8.3-10.6)
[2022-04-05 19:30] LABS: BLOOD UREA NITROGEN 9 MG/DL (9-23); GLUCOSE, FASTING 90 MG/DL (74-106)
[2022-04-05 19:32] LABS: CREATININE FOR GFR 0.96 MG/DL (0.55-1.30); GLOMERULAR FILTRATION RATE > 60.0 (>45)
== END ==
LOC: M SFHCCLAY 12:08
PROVIDERS: ATTEND Family Medicine
DX: R10.32 Left lower quadrant pain (principal)

== ENCOUNTER 2022-04-08 10:31 | Emergency (ER) | payer MEDICARE ==
[~2022-04-08] VITALS: Ht 162.6 cm; Wt 63.9 kg
[~2022-04-08 10:31] MED LIST changes: -CIPR500T39 PO; -METR-265 PO
[2022-04-08] MEDS ORDERED: CIPR500T39 PO (11:02)
[2022-04-08] MEDS ORDERED: METR-265 PO (11:02)
[2022-04-08 16:07] LABS: BASO # 0.1 10^3/uL (0.0-0.2); EOS # 0.2 10^3/uL (0.0-0.5); EOS % 3.1 % (0.0-3.0); HEMATOCRIT 42.2 % (36.0-47.0); HEMOGLOBIN 14.1 g/dl (12.0-15.5); LYMPH # 2.3 10^3/uL (1.5-5.0); LYMPH % 32.1 % (24.0-44.0); MEAN CORPUSCULAR HEMOGLOBIN 31.5 pg (27.0-33.0); MEAN CORPUSCULAR HGB CONC 33.4 g/dl (32.0-36.5); MEAN CORPUSCULAR VOLUME 94.2 fl (80.0-96.0); MONO # 0.4 10^3/uL (0.0-0.8); MONO % 6.1 % (2.0-8.0); NEUTROPHILS # 4.1 10^3/uL (1.5-8.5); NEUTROPHILS % 57.6 % (36.0-66.0); PLATELET COUNT, AUTOMATED 256 10^3/uL (150-450); RED BLOOD COUNT 4.48 10^6/uL (4.00-5.40); WHITE BLOOD COUNT 7.2 10^3/uL (4.0-10.0)
[2022-04-08] MEDS ORDERED: ONDANSETRON 4MG 2ML VIAL IV ONE (16:30)
[2022-04-08] MEDS ORDERED: NS 1,000 ML IV ONE (16:30)
[2022-04-08] MEDS ORDERED: ISOVUE-370 76% 100ML VIAL As Ordered ONE (16:38)
[2022-04-08 16:43] LABS: LIPASE 52 U/L (12-53)
[2022-04-08 16:44] LABS: BILIRUBIN,DIRECT < 0.1 MG/DL (<0.4)
[2022-04-08 16:45] LABS: ALBUMIN 4.2 G/DL (3.2-5.2); ALKALINE PHOSPHATASE 60 U/L (46-116); ALT/SGPT 47 U/L (7.0-40); AST/SGOT 59 U/L (<34); BILIRUBIN,TOTAL 0.2 MG/DL (0.3-1.2); TOTAL PROTEIN 7.6 G/DL (5.7-8.2)
[2022-04-08 19:40] VITALS: BP 131/62
[2022-04-08 21:17] LABS: GC DNA AMPLIFICATION NEGATIVE (NEGATIVE)
== END 2022-04-08 19:43 | disposition home or self-care (01) ==
LOC: M ED 10:31
DX: N95.2 Postmenopausal atrophic vaginitis (principal); R10.2 Pelvic and perineal pain; R11.0 Nausea; K52.9 Noninfective gastroenteritis and colitis, unspecified; N85.4 Malposition of uterus; F41.9 Anxiety disorder, unspecified; F32.A Depression, unspecified; K76.0 Fatty (change of) liver, not elsewhere classified; G89.29 Other chronic pain; M54.9 Dorsalgia, unspecified; R51.9 Headache, unspecified; M79.7 Fibromyalgia; Z90.49 Acquired absence of other specified parts of digestive tract; K57.32 Diverticulitis of large intestine without perforation or abscess without bleeding; Z88.0 Allergy status to penicillin; Z88.2 Allergy status to sulfonamides; Z88.8 Allergy status to other drugs, medicaments and biological substances; Z79.899 Other long term (current) drug therapy
CPT/HCPCS: 36415; 74177; 76830; 76856; 80047; 80076; 81000; 83605; 83690; 85025; 87086; 87210; 87661; 87810; 87850; 96361; 96374; 99284; J2405; Q9967

== ENCOUNTER → 2022-04-28 | Outpatient (REF) | payer MEDICARE ==
[~2022-04-28] MED LIST changes: +CIPR500T39 PO; +METR-265 PO
[2022-04-28 16:09] LABS: ALBUMIN 4.2 G/DL (3.2-5.2); ALKALINE PHOSPHATASE 63 U/L (46-116); ALT/SGPT 38 U/L (7.0-40); AST/SGOT 39 U/L (<34); BILIRUBIN,DIRECT < 0.1 MG/DL (<0.4); BILIRUBIN,TOTAL 0.4 MG/DL (0.3-1.2); TOTAL PROTEIN 7.6 G/DL (5.7-8.2)
== END ==
LOC: M LABDRAWC 15:30
PROVIDERS: ATTEND Physician Assistant Medical
DX: R74.01 Elevation of levels of liver transaminase levels (principal)

== ENCOUNTER → 2022-10-06 | Outpatient (REF) | payer MEDICARE ==
[2022-10-06 17:28] LABS: BASO # 0.1 10^3/uL (0.0-0.2); BASO % 1.4 % (0.0-1.0); EOS # 0.3 10^3/uL (0.0-0.5); HEMOGLOBIN 14.7 g/dl (12.0-15.5); LYMPH # 1.8 10^3/uL (1.5-5.0); MEAN CORPUSCULAR HEMOGLOBIN 31.3 pg (27.0-33.0); MEAN CORPUSCULAR HGB CONC 32.7 g/dl (32.0-36.5); MEAN CORPUSCULAR VOLUME 95.7 fl (80.0-96.0); MONO # 0.4 10^3/uL (0.0-0.8); MONO % 5.8 % (2.0-8.0); NEUTROPHILS % 60.5 % (36.0-66.0); PLATELET COUNT, AUTOMATED 253 10^3/uL (150-450); WHITE BLOOD COUNT 6.6 10^3/uL (4.0-10.0)
[2022-10-06 17:38] LABS: ALBUMIN 4.1 G/DL (3.2-5.2); BILIRUBIN,TOTAL 0.5 MG/DL (0.3-1.2); CALCIUM LEVEL 8.9 MG/DL (8.3-10.6); CHOLESTEROL RISK RATIO 4.21 (<5); CREATININE FOR GFR 1.05 MG/DL (0.55-1.30); GLOMERULAR FILTRATION RATE 55.5 (>45); HDL CHOLESTEROL 52.9 MG/DL (>40); LDL CHOLESTEROL 122.5 MG/DL (<100); NON-HDL-C 170.1 MG/DL; POTASSIUM SERUM 4.8 MMOL/L (3.5-5.1); TOTAL PROTEIN 7.1 G/DL (5.7-8.2)
== END ==
LOC: M SFHCCLAY 12:02
PROVIDERS: ATTEND Family Medicine
DX: K51.90 Ulcerative colitis, unspecified, without complications (principal); E78.00 Pure hypercholesterolemia, unspecified; K21.9 Gastro-esophageal reflux disease without esophagitis

== ENCOUNTER → 2022-10-31 | Outpatient (REF) | payer MEDICARE | LOC: M SFHCCLAY 14:11 | PROVIDERS: ATTEND Physician Assistant Medical | DX: R10.2 Pelvic and perineal pain (principal) ==

== ENCOUNTER → 2022-12-22 | Outpatient (CLI) | payer MEDICARE ==
[~2022-12-22] MED LIST changes: +GASTROGRAFIN SOLUTION 30ML As Ordered ONE; +ISOVUE-370 76% 100ML VIAL As Ordered ONE
[2022-12-22 13:58] LABS: GLOMERULAR FILTRATION RATE 58.7 (>45)
== END ==
LOC: M RAD 12:48
PROVIDERS: ATTEND Physician Assistant Medical
DX: K62.89 Other specified diseases of anus and rectum (principal)
CPT/HCPCS: 36415; 72193; 82565; 84520; Q9963; Q9967

== ENCOUNTER 2022-12-23 11:31 | Emergency (ER) | payer MEDICARE ==
[~2022-12-23] VITALS: Ht 160 cm; Wt 63.4 kg
[~2022-12-23 11:31] MED LIST changes: -GASTROGRAFIN SOLUTION 30ML As Ordered ONE; -ISOVUE-370 76% 100ML VIAL As Ordered ONE
[2022-12-23 11:32] VITALS: BP 137/78; TEMP 98.6; O2SAT 100
[2022-12-23 12:26] LABS: BASO # 0.1 10^3/uL (0.0-0.2); BASO % 0.8 % (0.0-1.0); EOS # 0.2 10^3/uL (0.0-0.5); EOS % 2.4 % (0.0-3.0); HEMATOCRIT 40.6 % (36.0-47.0); HEMOGLOBIN 13.6 g/dl (12.0-15.5); LYMPH % 23.8 % (24.0-44.0); MEAN CORPUSCULAR HEMOGLOBIN 31.5 pg (27.0-33.0); MEAN CORPUSCULAR HGB CONC 33.5 g/dl (32.0-36.5); MONO # 0.5 10^3/uL (0.0-0.8); MONO % 6.1 % (2.0-8.0); NEUTROPHILS # 5.6 10^3/uL (1.5-8.5); NEUTROPHILS % 66.5 % (36.0-66.0); PLATELET COUNT, AUTOMATED 240 10^3/uL (150-450); RED BLOOD COUNT 4.32 10^6/uL (4.00-5.40); WHITE BLOOD COUNT 8.4 10^3/uL (4.0-10.0)
[2022-12-23 12:46] LABS: BLOOD UREA NITROGEN 7 MG/DL (9-23); CALCIUM LEVEL 8.7 MG/DL (8.3-10.6); CARBON DIOXIDE LEVEL 28 MMOL/L (20-31); CHLORIDE LEVEL 108 MMOL/L (98-107); CREATININE FOR GFR 0.87 MG/DL (0.55-1.30); GLOMERULAR FILTRATION RATE > 60.0 (>45); GLUCOSE, FASTING 88 MG/DL (74-106); POTASSIUM SERUM 4.7 MMOL/L (3.5-5.1); SODIUM LEVEL 142 MMOL/L (136-145)
[2022-12-23 12:48] LABS: INR 1.04; PROTHROMBIN TIME 13.3 SECONDS (12.5-14.5)
[2022-12-23] MEDS ORDERED: LIDOCAINE W/EPINEPHRINE 1% 20ML VIAL SC ONE (14:40)
== END 2022-12-23 15:46 | disposition home or self-care (01) ==
LOC: M ED 11:31
DX: K61.1 Rectal abscess (principal); K51.00 Ulcerative (chronic) pancolitis without complications; Z88.0 Allergy status to penicillin; Z88.2 Allergy status to sulfonamides; Z88.8 Allergy status to other drugs, medicaments and biological substances; Z87.441 Personal history of nephrotic syndrome; K76.0 Fatty (change of) liver, not elsewhere classified; M54.9 Dorsalgia, unspecified; F41.9 Anxiety disorder, unspecified; F32.A Depression, unspecified; Z79.899 Other long term (current) drug therapy

== ENCOUNTER → 2022-12-29 | Outpatient (CLI) | payer MEDICARE ==
[~2022-12-29] MED LIST changes: +GASTROGRAFIN SOLUTION 30ML As Ordered ONE; +ISOVUE-370 76% 100ML VIAL As Ordered ONE
== END ==
LOC: M RAD 06:59
PROVIDERS: ATTEND Physician Assistant Medical
DX: K62.89 Other specified diseases of anus and rectum (principal)
CPT/HCPCS: 72193; Q9963; Q9967

== ENCOUNTER → 2023-05-03 | Outpatient (REF) | payer MEDICARE ==
[~2023-05-03] MED LIST changes: -GASTROGRAFIN SOLUTION 30ML As Ordered ONE; -ISOVUE-370 76% 100ML VIAL As Ordered ONE
== END ==
LOC: M SFHCWAGY 12:43
PROVIDERS: ATTEND Nurse Practitioner Family
DX: R35.0 Frequency of micturition (principal); N73.9 Female pelvic inflammatory disease, unspecified

== ENCOUNTER → 2023-09-05 | Outpatient (REF) | payer MEDICARE ==
[2023-09-05 11:47] LABS: HEMATOCRIT 42.9 % (36.0-47.0); HEMOGLOBIN 14.6 g/dl (12.0-15.5); MEAN CORPUSCULAR HEMOGLOBIN 31.9 pg (27.0-33.0); MEAN CORPUSCULAR VOLUME 93.7 fl (80.0-96.0); PLATELET COUNT, AUTOMATED 272 10^3/uL (150-450); RED BLOOD COUNT 4.58 10^6/uL (4.00-5.40); WHITE BLOOD COUNT 7.1 10^3/uL (4.0-10.0)
[2023-09-05 12:19] LABS: ALBUMIN 3.8 G/DL (3.2-5.2); BILIRUBIN,TOTAL 0.4 MG/DL (0.3-1.2); CALCIUM LEVEL 9.7 MG/DL (8.3-10.6); CHOLESTEROL RISK RATIO 4.52 (<5); CREATININE FOR GFR 0.98 MG/DL (0.55-1.30); GLOMERULAR FILTRATION RATE 59.9 (>45); HDL CHOLESTEROL 49.9 MG/DL (>40); LDL CHOLESTEROL 123.5 MG/DL (<100); NON-HDL-C 176.1 MG/DL; POTASSIUM SERUM 4.6 MMOL/L (3.5-5.1); TOTAL PROTEIN 6.9 G/DL (5.7-8.2)
[2023-09-05 12:20] LABS: THYROID STIMULATING HORMONE 3.352 uIU/ML (0.55-4.78)
[2023-09-05 12:21] LABS: FREE T4 1.05 NG/DL (0.89-1.76)
== END ==
LOC: M SFHCCLAY 09:02
PROVIDERS: ATTEND Family Medicine
DX: K76.0 Fatty (change of) liver, not elsewhere classified (principal); E78.00 Pure hypercholesterolemia, unspecified; K21.9 Gastro-esophageal reflux disease without esophagitis; K51.90 Ulcerative colitis, unspecified, without complications; Z28.21 Immunization not carried out because of patient refusal; L27.1 Localized skin eruption due to drugs and medicaments taken internally; L65.9 Nonscarring hair loss, unspecified

== ENCOUNTER → 2023-11-08 | Outpatient (CLI) | payer MEDICARE | LOC: M WHC 15:30 | PROVIDERS: ATTEND Nurse Practitioner Family | DX: Z13.820 Encounter for screening for osteoporosis (principal); N95.8 Other specified menopausal and perimenopausal disorders ==

== ENCOUNTER → 2023-11-08 | Outpatient (CLI) | payer MEDICARE | LOC: M WHC 15:52 | PROVIDERS: ATTEND Nurse Practitioner Family | DX: Z12.31 Encounter for screening mammogram for malignant neoplasm of breast (principal); R92.323 Mammographic fibroglandular density, bilateral breasts ==

== ENCOUNTER → 2023-11-23 | Outpatient (REF) | payer MEDICARE ==
[2023-11-23 12:40] LABS: CHOLESTEROL RISK RATIO 4.09 (<5); LDL CHOLESTEROL 105.8 MG/DL (<100)
== END ==
LOC: M SFHCCLAY 09:44
PROVIDERS: ATTEND Family Medicine
DX: E78.00 Pure hypercholesterolemia, unspecified (principal); K76.0 Fatty (change of) liver, not elsewhere classified

== ENCOUNTER → 2024-08-20 | Outpatient (CLI) | payer MEDICARE ==
[~2024-08-20] MED LIST changes: -VITA500C19 PO; +VITA500C22 PO
[2024-08-20 16:01] LABS: FREE T4 1.11 NG/DL (0.89-1.76)
[2024-08-20 16:03] LABS: THYROID STIMULATING HORMONE 2.651 uIU/ML (0.55-4.78)
== END ==
LOC: M PLALAB 14:16
PROVIDERS: ATTEND Nurse Practitioner Family
DX: R23.2 Flushing (principal); L29.2 Pruritus vulvae

== ENCOUNTER → 2024-09-12 | Outpatient (CLI) | payer MEDICARE ==
[~2024-09-12] MED LIST changes: +TOPI-256; -TOPI25TA10
== END ==
LOC: M WHC 12:37
PROVIDERS: ATTEND Nurse Practitioner Family
DX: R14.0 Abdominal distension (gaseous) (principal)

== ENCOUNTER → 2024-09-17 | Outpatient (CLI) | payer MEDICARE | LOC: M RAD 14:35 | PROVIDERS: ATTEND Physician Assistant Medical | DX: R10.84 Generalized abdominal pain (principal); K59.00 Constipation, unspecified; R14.0 Abdominal distension (gaseous) ==

== ENCOUNTER → 2024-09-19 | Outpatient (CLI) | payer MEDICARE ==
[2024-09-19 14:55] LABS: CREATININE FOR GFR 0.99 MG/DL (0.55-1.30); GLOMERULAR FILTRATION RATE 61.3 (>39)
== END ==
LOC: M LAB 13:30
PROVIDERS: ATTEND Physician Assistant Medical
DX: R10.84 Generalized abdominal pain (principal)

== ENCOUNTER → 2024-09-20 | Outpatient (CLI) | payer MEDICARE ==
[~2024-09-20] MED LIST changes: +ISOVUE-370 76% 100ML VIAL As Ordered ONE
== END ==
LOC: M RAD 09:47
PROVIDERS: ATTEND Physician Assistant Medical
DX: R14.0 Abdominal distension (gaseous) (principal); R10.9 Unspecified abdominal pain; K62.89 Other specified diseases of anus and rectum
CPT/HCPCS: 74177; Q9967

== ENCOUNTER → 2024-09-24 | Outpatient (REF) | payer MEDICARE ==
[~2024-09-24] MED LIST changes: -ISOVUE-370 76% 100ML VIAL As Ordered ONE
== END ==
LOC: M LAB REF 17:29
PROVIDERS: ATTEND Physician Assistant Medical
DX: R19.4 Change in bowel habit (principal); R10.84 Generalized abdominal pain; A09 Infectious gastroenteritis and colitis, unspecified; A04.72 Enterocolitis due to Clostridium difficile, not specified as recurrent

== ENCOUNTER → 2025-01-07 | Outpatient (REF) | payer MEDICARE ==
[~2025-01-07] MED LIST changes: +MIRA3350 PO; +OMEP1CAP73 PO; +PROBCAP14 PO; +ROSU10TA61 PO; +THERTAB52 PO
[2025-01-07 15:19] LABS: APPEARANCE, URINE CLEAR (CLEAR); BACTERIA, URINE AUTO NEGATIVE (NEGATIVE); BILIRUBIN, URINE AUTO NEGATIVE (NEGATIVE); BLOOD, URINE BLOOD NEGATIVE (NEGATIVE); GLUCOSE, URINE (UA) AUTO NEGATIVE (NEGATIVE); KETONE, URINE AUTO NEGATIVE (NEGATIVE); LEUKOCYTE ESTERASE, URINE AUTO NEGATIVE (NEGATIVE); NITRITE, URINE AUTO NEGATIVE (NEGATIVE); PROTEIN, URINE AUTO NEGATIVE (NEGATIVE); RBC, URINE AUTO 1 /HPF (0-3); SPECIFIC GRAVITY URINE AUTO 1.013 (1.002-1.035); SQUAMOUS EPITHELIAL CELL UR AU 1 /HPF (0-6); UROBILINOGEN, URINE AUTO 0.2 mg/dL (0.0-2.0); WBC, URINE AUTO 1 /HPF (0-3)
[2025-01-07 15:51] LABS: TOTAL PROTEIN,RANDOM URINE 8.3 MG/DL (0.0-14.0)
[2025-01-07 17:31] LABS: BASO # 0.1 10^3/uL (0.0-0.2); BASO % 1.1 % (0.0-1.0); EOS # 0.5 10^3/uL (0.0-0.5); EOS % 5.5 % (0.0-3.0); LYMPH # 3.0 10^3/uL (1.5-5.0); LYMPH % 34.9 % (24.0-44.0); MONO # 0.5 10^3/uL (0.0-0.8); MONO % 6.1 % (2.0-8.0); NEUTROPHILS # 4.5 10^3/uL (1.5-8.5); NEUTROPHILS % 52.2 % (36.0-66.0); PLATELET COUNT, AUTOMATED 262 10^3/uL (150-450)
[2025-01-07 17:54] LABS: ERYTHROCYTE SEDIMENTATION RATE 22 mm/hr (0-30)
[2025-01-07 18:00] LABS: C REACTIVE PROTEIN QUANTITATIV < 0.50 MG/DL (<1.0); IRON (FE) 100 UG/DL (50-170); MAGNESIUM LEVEL 2.3 MG/DL (1.8-2.4); PERCENT SATURATION 38.0 % (13.2-45.0); PHOSPHORUS LEVEL 4.3 MG/DL (2.4-5.1); TOTAL 25(OH) VITAMIN D 51.8 NG/ML (20.0-100.0)
[2025-01-07 18:01] LABS: VITAMIN B12 LEVEL 627 PG/ML (211-911)
[2025-01-07 18:06] LABS: COMPLEMENT C4 45.1 MG/DL (12-36)
== END ==
LOC: M SFHCRHEU 13:25
PROVIDERS: ATTEND Internal Medicine
DX: R76.8 Other specified abnormal immunological findings in serum (principal); M79.10 Myalgia, unspecified site; M25.50 Pain in unspecified joint; Z79.899 Other long term (current) drug therapy

== ENCOUNTER → 2025-01-10 | Outpatient (CLI) | payer MEDICARE | LOC: M CLY 14:57 | PROVIDERS: ATTEND Internal Medicine | DX: M25.50 Pain in unspecified joint (principal) ==

== ENCOUNTER → 2025-02-26 | Outpatient (REF) | payer MEDICARE | LOC: M SFHCWAGY 17:15 | PROVIDERS: ATTEND Nurse Practitioner Family | DX: R10.23 Pelvic and perineal pain bilateral (principal) ==

== ENCOUNTER → 2025-02-26 | Outpatient (CLI) | payer MEDICARE ==
[~2025-02-26] MED LIST changes: -ROSU10TA61 PO; +ROSU10TA90 PO
== END ==
LOC: M PLAIMG 16:20
PROVIDERS: ATTEND Nurse Practitioner Family
DX: R10.9 Unspecified abdominal pain (principal)

== ENCOUNTER → 2025-02-26 | Outpatient (CLI) | payer MEDICARE | LOC: M WHC 15:00 | PROVIDERS: ATTEND Nurse Practitioner Family | DX: Z12.31 Encounter for screening mammogram for malignant neoplasm of breast (principal); R92.323 Mammographic fibroglandular density, bilateral breasts ==

== ENCOUNTER → 2025-04-10 | Outpatient (CLI) | payer MEDICARE | LOC: M PLAIMG 09:42 | PROVIDERS: ATTEND Internal Medicine | DX: M79.641 Pain in right hand (principal); M79.642 Pain in left hand ==